=== PATIENT | female | born 1995 | race African-American/Black ===

== ENCOUNTER 2019-05-09 19:06 | Emergency (ER) | payer OTHER ==
[2019-05-09 19:10] VITALS: BP 104/60; PULSE 77; TEMP 98.6; BMI 37.1
--- NOTE | 2019-05-09 19:41 | PDOC ---
History of Present Illness - General Chief Complaint: Pain Stated Complaint: CHEST PAIN Time Seen by Provider: 05/09/19 19:12 History Source: Patient Exam Limitations: No Limitations Past History - Past Medical History Allergies/Adverse Reactions: Allergies Allergy/AdvReac Type Severity Reaction Status Date / Time No Known Allergies Allergy Verified 05/09/19 19:10 COPD: No - Suicide/Smoking/Psychosocial Hx Smoking History: Never smoked *Physical Exam - Vital Signs Last Vital Signs Temp Pulse Resp BP Pulse Ox 98.6 F 77 18 104/60 100 05/09/19 19:08 05/09/19 19:08 05/09/19 19:08 05/09/19 19:08 05/09/19 19:08 - Physical Exam General Appearance: No: Apparent Distress Respiratory/Chest: positive: Chest Tender (along anterior chest wall), Lungs Clear, Normal Breath Sounds. negative: Respiratory Distress Cardiovascular: positive: Regular Rhythm, Regular Rate, S1, S2. negative: Murmur Gastrointestinal/Abdominal: positive: Normal Bowel Sounds, Soft. negative: Tender, Distended, Guarding, Rebound Integumentary: positive: Normal Color. negative: Rash Neurologic: positive: Alert, Normal Mood/Affect ED Treatment Course - RADIOLOGY Radiology Studies Ordered: Category Date Time Status CHEST PA & LAT [RAD] Stat Radiology 05/09/19 19:23 Ordered Medical Decision Making - Medical Decision Making 23 y/o F with no sig pmh, nonsmoker, presents with constant, nonradiating, substernal chest tightness which she woke up with today. Pain is worse with movement of body, touching the chest wall, coughing, hiccuping. Denies fever, URI sxs, cough, sob, abd pain, n/v, calf pain, LE swelling, recent travel, use of OCPs, recent surgeries. Denies drug use Likely costochondritis PERC negative Not suspicious for ACS, PNA Plan: CXR Patient refused pain meds 05/09/19 19:37 CXR negative 05/09/19 19:48 *DC/Admit/Observation/Transfer Diagnosis at time of Disposition: Costochondritis - Discharge Dispostion Disposition: HOME Condition at time of disposition: Stable Decision to Admit order: No - Referrals - Patient Instructions Printed Discharge Instructions: DI for Costochondritis Additional Instructions: Thank you for choosing [facility]. It was a pleasure taking care of you. Your chest xray was negative You may take Motrin 600 mg every 6 hours by mouth as needed for mild to moderate pain. Take Motrin with food. You may also apply warm compresses to site Return to the Emergency Department if your symptoms worsen or persist, you have fever, shortness of breath, worsening chest pain or other concerning symptoms. - Post Discharge Activity
== END 2019-05-09 20:08 | disposition home or self-care (01) ==
LOC: JER 19:06
DX: M94.0 Chondrocostal junction syndrome [Tietze] (principal)
CPT/HCPCS: 71046-TC-FY; 99281-25

== ENCOUNTER 2019-09-01 14:49 | Emergency (ER) | payer OTHER ==
[2019-09-01 14:55] VITALS: BP 111/50; PULSE 64; TEMP 97.8; BMI 39.4
[2019-09-01] MEDS ORDERED: METOCLOPRAMIDE HCL INJECTION 10 MG/2 ML VIAL IVPUSH ONE (15:25)
[2019-09-01] MEDS ORDERED: KETOROLAC TROMETHAMINE 30 MG/1 ML VIAL IVPUSH ONE (15:26)
--- NOTE | 2019-09-01 15:33 | PDOC ---
History of Present Illness - General Chief Complaint: Headache Stated Complaint: HEADACHE Time Seen by Provider: 09/01/19 15:04 History Source: Patient - History of Present Illness Timing/Duration: reports: 1 week Past History - Past Medical History Allergies/Adverse Reactions: Allergies Allergy/AdvReac Type Severity Reaction Status Date / Time No Known Allergies Allergy Verified 09/01/19 14:58 Home Medications: Ambulatory Orders Naproxen 250 mg PO ASDIR #30 tablet MDD 1250 mg 09/01/19 Sumatriptan Succinate [Imitrex -] 50 mg PO ONCE #20 tablet MDD 100 mg 09/01/19 COPD: No - Psycho Social/Smoking Cessation Hx Smoking History: Never smoked Information on smoking cessation initiated: No Hx Alcohol Use: No Drug/Substance Use Hx: No Review of Systems - Review of Systems Constitutional: No: Chills, Fever, Unexplained wgt Loss ABD/GI: Yes: Nausea. No: Vomiting Neurological: Yes: Headache, Dizziness. No: Numbness, Tingling, Weakness *Physical Exam - Vital Signs Last Vital Signs Temp Pulse Resp BP Pulse Ox 97.8 F 64 18 111/50 L 100 09/01/19 14:52 09/01/19 14:52 09/01/19 14:52 09/01/19 14:52 09/01/19 14:52 - Physical Exam General Appearance: Yes: Appropriately Dressed. No: Apparent Distress HEENT: positive: Normal Voice Neck: positive: Supple Respiratory/Chest: negative: Respiratory Distress Integumentary: positive: Dry, Warm Neurologic: positive: brim edge trimmer II-XII NML intact, Fully Oriented, Alert, Normal Mood/ Affect, Motor Strength 5/5 Medical Decision Making - Medical Decision Making 09/01/19 16:13 24-year-old female, endorses history of chronic headaches, here with her usual headache. Patient states she developed frontal headache with some nausea and photophobia 1 week ago that has been constant w/ no exacerbating factors. Taking multiple [id number] meds with no relief. Patient states she has had similar headaches on and off x several years that usually improves after several days w/ OTC meds but that this time pain is lasting longer. For unclear reasons has never been evaluated by PCP or neurologist. No visual changes, sensory changes, focal weakness or unexplained weight loss see exam Acute on chronic BORJAS No red flags at this time Upreg neg Declines IV reglan/toradol here Dose of motrin given Dc w/ painb control and neuro f/u Discharge - Discharge Information Problems reviewed: Yes Clinical Impression/Diagnosis: Headache Qualifiers: Headache type: unspecified Headache chronicity pattern: chronic headache Intractability: intractable Qualified Code(s): R51 - Headache Condition: Good - Additional Discharge Information Prescriptions: Naproxen 250 mg PO ASDIR #30 tablet MDD 1250 mg Sumatriptan Succinate [Imitrex -] 50 mg PO ONCE #20 tablet MDD 100 mg - Follow up/Referral Referrals: Martin Donnelly MD [Primary Care Provider] - Tejas Yeboah MD [Staff Physician] - - Patient Discharge Instructions Patient Printed Discharge Instructions: Migraine -- Adult Additional Instructions: Take medications as directed and follow up with Dr Yeboah of neurology for further evaluation - Post Discharge Activity
[2019-09-01] MEDS ORDERED: METOCLOPRAMIDE HCL INJECTION 10 MG/2 ML VIAL ONE (15:52)
[2019-09-01] MEDS ORDERED: KETOROLAC TROMETHAMINE 30 MG/1 ML VIAL ONE (15:52)
[2019-09-01] MEDS ORDERED: IBUPROFEN 400 MG TABLET (FP) PO ONE ×2 (16:01→16:04)
== END 2019-09-01 16:35 | disposition home or self-care (01) ==
LOC: JERFT 14:49
DX: R51 Headache (principal)
CPT/HCPCS: 84703; 99282-25

== ENCOUNTER 2021-10-26 15:48 | Emergency (ER) | payer OTHER ==
[2021-10-26 16:02] VITALS: BP 106/76; PULSE 90; TEMP 98.2; BMI 34.3
[2021-10-26] MEDS ORDERED: DIPHTH,PERTUSS(ACELL),TET 0.5 ML DISP.SYRIN IM ONE ×2 (17:03→17:10)
== END 2021-10-26 17:18 | disposition home or self-care (01) ==
LOC: JER 15:48 → JERFT 15:48
PROC: 0HQHXZZ Repair Right Upper Leg Skin, External Approach (ICD-10-PCS; principal; 2021-10-26)
PROC: 3E0234Z Introduction of Serum, Toxoid and Vaccine into Muscle, Percutaneous Approach (ICD-10-PCS; 2021-10-26)
DX: S71.101A Unspecified open wound, right thigh, initial encounter (principal); W26.8XXA Contact with other sharp object(s), not elsewhere classified, initial encounter
CPT/HCPCS: 12002-25; 90471; 90715; 99284-25